=== PATIENT | male | born 1995 | race African-American/Black ===

== ENCOUNTER 2023-11-01 01:32 | Emergency (ER) | payer SELFPAY ==
[2023-11-01 02:29] VITALS: BP 135/66; PULSE 84; RESP 18; TEMP 98.2; BMI 25.7
== END 2023-11-01 04:15 | disposition home or self-care (01) ==
LOC: JER 01:32
DX: R07.89 Other chest pain (principal); R00.2 Palpitations
CPT/HCPCS: 71046-TC-FY; 93005; 93010; 99284-25